=== PATIENT | male | born 2000 | race Caucasian/White ===

== ENCOUNTER 2024-06-14 09:52 | Inpatient (IN) | payer OTHER, SELFPAY ==
[2024-06-14] VITALS (8 sets, daily range): BP systolic 96–112; BP diastolic 48–72; PULSE 54–77; RESP 12–20; TEMP 35.9–37.1; O2SAT 98–100; BMI 23.8
--- NOTE | ~2024-06-14 | CT_ITS ---
CLINICAL HISTORY: RLQ pain, eval for acute appy CT abdomen and pelvis with contrast Comparison: None Findings: The lung bases are clear. Unremarkable gallbladder and solid organs. No urolithiasis. No bowel obstruction, pneumoperitoneum, or pneumatosis. The appendix is inflamed demonstrates enhancement and is dilated measuring up to 1 cm in diameter. There is a significant amount of periappendiceal inflammation and fluid. There are no definitive signs of perforation or abscess. A small amount of free fluid is present in the pelvis. The bones are intact. The rest of the GI tract is unremarkable. IMPRESSION: Acute appendicitis without evidence of perforation. This document has been electronically signed by: Baltazar Bunn MD on 06/14/2024 16:39:34
[2024-06-14 11:21] LABS: Basophils Percent Auto 0.2 % (0-2); Hematocrit 42.7 % (42.0-52.0); Hemoglobin 13.6 g/dl (14.0-18.0); Imm Gran Abs Auto 0.09 X10*3/uL (0.00-0.03); Imm Gran Pct Auto 0.5 % (0.0-0.4); Lymphocytes Absolute Auto 0.5 X10*3/uL (1.2-4.9); Lymphocytes Percent Auto 2.8 % (20-40); MANUAL DIFF FLAG SCAN; Mean Corpuscular HGB Conc 31.9 g/dl (31.0-36.0); Mean Corpuscular Hemoglobin 21.5 pg (27.0-33.0); Mean Corpuscular Volume 67.6 fL (80.0-98.0); Mean Platelet Volume 9.9 fL (9.4-12.4); Monocytes Absolute Auto 1.1 X10*3/uL (0.1-1.2); Monocytes Percent Auto 5.6 % (2-11); Neutrophils Absolute Auto 17.2 x10*3/uL (2.0-8.3); Neutrophils Percent Auto 90.9 % (45-73); Platelet Count 209 X10*3/uL (160-400); Red Blood Count 6.32 X10*6/uL (4.60-5.80); Red Cell Distribution Width 15.5 % (11.0-16.0); SCAN SMEAR FLAG 1; White Blood Count 18.9 X10*3/uL (4.8-10.8)
[2024-06-14 11:22] LABS: Appearance Urine Clear; Color Urine Yellow; Glucose Urine UA Negative (Negative); Leukocyte Esterase Urine Trace (Negative); Nitrite Urine Negative (Negative); PH 8.5 (5.0-9.0); Specific Gravity - Urine >= 1.030 (1.005-1.025); UMIC TRIGGER UACC YES; Urine Blood Negative (Negative); Urine Ketones 15 mg/dL (Negative); Urine Protein 30 (1+) mg/dL (Neg-Trace)
[2024-06-14 11:26] LABS: Bacteria Urine Trace (None Seen); Hyaline Casts Urine 0-2 /LPF (0-2); RBC Urine 0-2 /HPF (0-2); WBC Urine 0-5 /HPF (0-5)
[2024-06-14 11:35] LABS: Alanine Aminotransferase 15 U/L (0-40); Albumin Level 4.6 g/dL (3.5-5.0); Alkaline Phosphatase 69 U/L (39-117); Anion Gap 13 (12-20); Aspartate Amino Transferase 30 U/L (5-37); Bilirubin Direct 0.2 mg/dL (0.0-0.5); Bilirubin Total 0.6 mg/dL (0.0-1.0); Blood Urea Nitrogen 11 mg/dL (9-16); Calcium 9.4 mg/dL (8.4-10.2); Carbon Dioxide 25 mmol/L (22-29); Chloride 108 mmol/L (96-108); Estimated Glomerular Filt Rate > 60; Glucose Random 101 mg/dL (60-115); Lipase 14 U/L (8-78); Magnesium 1.8 mg/dL (1.6-2.6); Potassium 4.7 mmol/L (3.3-5.1); Sodium 141 mmol/L (135-145); Total Protein 7.3 g/dL (6.5-8.0)
[2024-06-14 11:40] LABS: SLIDE REVIEW VERIFIED
--- NOTE | 2024-06-14 11:47 | ED.ABDPAIN ---
HPI - Abdominal Pain General Chief Complaint: Abdominal Pain Stated Complaint: abd pain Time Seen by Provider: 06/14/24 11:39 Source: patient and family Mode of arrival: ambulatory Limitations: no limitations History of Present Illness ED Provider: Ekta Patel APRN HPI narrative: This is a 23-year-old transgender female who has had tops surgery only who presents with complaints of right lower quadrant abdominal pain since 03:00 with vomiting. Patient denies associated diarrhea, urinary symptoms, fevers, vaginal discharge, rashes or lesions. Patient is sexually active with 1 female partner. Does not have any concern for STI. Currently on testosterone, does get intermittent menstrual cycle. Denies any abdominal surgical history Related Data Allergies Allergy/AdvReac Type Severity Reaction Status Date / Time lactase [From Dairy Aid] Allergy Gastrointestinal Verified 06/14/24 10:32 Upset Penicillins [PCN] Allergy Rash Verified 06/14/24 10:32 Review of Systems Review of Systems Yes all other systems are reviewed and are negative Constitutional: Reports no additional constitutional complaints, Denies body ache(s), Denies chills, Denies fever(s), Denies headache(s) and Denies weakness Eyes: Reports no additional eye complaints and Denies change in vision Reports system reviewed and no additional complaints, except as documented, Denies dizziness, Denies headache(s), Denies nasal congestion, Denies nasal discharge and Denies neck pain Cardiovascular: Reports no additional cardiovascular complaints, Denies chest pain, Denies leg edema and Denies dyspnea Respiratory: Reports no additional respiratory complaints, Denies cough and Denies dyspnea Gastrointestinal: Reports no additional gastrointestinal complaints, Reports abdominal pain, Denies diarrhea, Reports nausea and Reports vomiting Genitourinary: Denies dysuria, Denies flank pain, Denies urinary frequency, Denies urinary hesitancy, Denies urinary incontinence and Denies urinary urgency Comments: Denies vaginal discharge Musculoskeletal: Reports no additional musculoskeletal complaints, Denies back pain, Denies arthralgias, Denies joint swelling, Denies neck pain, Denies numbness and Denies tingling Skin/Breast: Reports system reviewed and no additional complaints, except as docu and Denies rash Reports system reviewed and no additional complaints, except as documented, Denies Abnormal speech present, Denies dizziness, Denies headache(s), Denies numbness, Denies tingling and Denies weakness PMFSH Past Medical History Attestation statement: The following information was validated with the patient. Source: old records reviewed and nursing notes reviewed Social History Social History Smoked in Last 30 Days: No Use of substances other than those prescribed or required for medical reasons: Yes Substance Use Type: Marijuana Advance Directives: No Advance Directives Information Provided: Yes Physical Exam ED Vital Signs: Vital Signs - 24 hr 06/14/24 10:31 06/14/24 11:39 06/14/24 12:40 Temperature 98.7 F Pulse Rate 72 58 77 Respiratory Rate 18 18 18 Blood Pressure 112/72 105/58 L 96/52 L Pulse Oximetry 98 100 99 Oxygen Delivery Method Room Air Room Air Room Air 06/14/24 13:24 06/14/24 15:22 06/14/24 17:09 Temperature 96.6 F L Pulse Rate 70 60 61 Respiratory Rate 18 14 12 Blood Pressure 104/57 L 98/48 L 105/52 L Pulse Oximetry 99 99 99 Oxygen Delivery Method Room Air Room Air Room Air BMI result Body Mass Index 23.8 Const General: cooperative, healthy appearing, comfortable and no acute distress Orientation/consciousness: patient oriented x3 Limitations: no limitations HENMT Head: Yes normal to inspection Ears: hearing grossly normal bilaterally General nose exam: Normal external nose present Face and sinus: Yes normal facial exam Mouth: Normal oral and palatal mucosa present Throat: Yes posterior oropharynx normal Eyes General: appearance normal, both eyes and all related structures Pupils: Equal, round and reactive pupils present Neck Neck: Yes normal visual inspection Chest Chest palpation & inspection: normal inspection of the chest Resp Effort & Inspection: normal respiratory effort Auscultation: clear to auscultation bilaterally Cardio Rate: regular rate Rhythm: regular rhythm Peripheral pulses: Peripheral pulses 2+ throughout GI Inspection: Yes normal to inspection Palpation (GI): Soft to palpation, Tenderness to palpation present (GI) in the RLQ; with no rebound tenderness and Guarding due to palpation present (GI) Auscultation: normal bowel sounds Back/Spine/Pelvis Thoracic/Lumbar Spine: thoracic and lumbar spine normal to inspection Skin General skin exam: no rashes or lesions noted Neuro General: patient oriented x3, no focal motor deficits and normal sensation to monofilament Cranial nerves: Yes Equal, round and reactive pupils present Cognition (Neuro): normal cognition Speech: No Abnormal speech present Gait exam (Neuro): Normal gait present Motor exam (neuro): 5/5 motor strength present throughout Extrem General: Yes normal to inspection Course Course Course Narrative: 1656-CT shows acute appendicitis. At this time infection is suspected. Antibiotics ordered. Call out to surgery Medical Decision Making Medical Decision Making [facility] Narrative: This is a 23-year-old transgender female who has had tops surgery only who presents with complaints of right lower quadrant abdominal pain since 03:00 with vomiting. Patient denies associated diarrhea, urinary symptoms, fevers, vaginal discharge, rashes or lesions. Patient is sexually active with 1 female partner. Does not have any concern for STI. Currently on testosterone, does get intermittent menstrual cycle. Denies any abdominal surgical history On exam patient has tenderness the right lower quadrant with guarding with no rebound. Will obtain labs, UA, CT abdomen and pelvis Will give IV fluids, anti emetic and analgesia Differential Diagnosis Differential Diagnoses: The differential diagnosis associated with the presentation includes 1656- acute appendicitis, ovarian torsion, PID, renal colic, pyelonephritis Admission/Observation Consideration of admission/observation: Escalation of care including admission/observation considered 1704-Ct shows acute appendicitis. WIll need surgical consultation and admission Consult Healthcare Provider Management of the patient was discussed with: Automobile Relocation Engineer Kurt ([id number]) Admission ordereds placed 1738 Lab Data [facility] Lab Attestation statement: I reviewed the patient's lab results. 06/14/24 11:14 06/14/24 11:14 Labs: Lab Results 06/14/24 06/14/24 Range/Units 11:14 12:17 WBC 18.9 H (4.8-10.8) X10*3/uL RBC 6.32 H (4.60-5.80) X10*6/uL Hgb 13.6 L (14.0-18.0) g/dl Hct 42.7 (42.0-52.0) % MCV 67.6 L (80.0-98.0) fL MCH 21.5 L (27.0-33.0) pg MCHC 31.9 (31.0-36.0) g/dl RDW 15.5 (11.0-16.0) % Plt Count 209 (160-400) X10*3/uL MPV 9.9 (9.4-12.4) fL Immature Gran % (Auto) 0.5 H (0.0-0.4) % Neut % (Auto) 90.9 H (45-73) % Lymph % (Auto) 2.8 L (20-40) % [place] % (Auto) 5.6 (2-11) % Eos % (Auto) 0.0 (0-4) % Baso % (Auto) 0.2 (0-2) % Lymph # (Auto) 0.5 L (1.2-4.9) X10*3/uL [place] # (Auto) 1.1 (0.1-1.2) X10*3/uL Eos # (Auto) 0.0 (0.0-0.4) X10*3/uL Baso # (Auto) 0.0 (0.0-0.2) X10*3/uL Abs Immat Gran (auto) 0.09 H (0.00-0.03) X10*3/uL Absolute Neuts (auto) 17.2 H (2.0-8.3) x10*3/uL Absolute Nucleated RBC 0.000 (0.0-0.012) X10*3/uL Nucleated RBC % (auto) 0.0 (0.0-0.2) /100WBC Smear Tech's Comments VERIFIED Sodium 141 (135-145) mmol/L Potassium 4.7 (3.3-5.1) mmol/L Chloride 108 (96-108) mmol/L Carbon Dioxide 25 (22-29) mmol/L Anion Gap 13 (12-20) BUN 11 (9-16) mg/dL Creatinine 0.66 (0.5-1.4) mg/dL Estim Creat Clear Calc 154.0 Estimated GFR > 60 Random Glucose 101 (60-115) mg/dL Lactic Acid 1.4 (0.5-2.0) mmol/L Calcium 9.4 (8.4-10.2) mg/dL Magnesium 1.8 (1.6-2.6) mg/dL Total Bilirubin 0.6 (0.0-1.0) mg/dL Direct Bilirubin 0.2 (0.0-0.5) mg/dL AST 30 (5-37) U/L ALT 15 (0-40) U/L Alkaline Phosphatase 69 (39-117) U/L Total Protein 7.3 (6.5-8.0) g/dL Albumin 4.6 (3.5-5.0) g/dL Lipase 14 (8-78) U/L Beta HCG, Quant < 2 mIU/mL Urine Color Yellow Urine Appearance Clear Urine pH 8.5 (5.0-9.0) Ur Specific [place] >= 1.030 H (1.005-1.025) Urine Protein 30 (1+) H (Neg-Trace) mg/dL Urine Glucose (UA) Negative (Negative) mg/dL Urine Ketones 15 (Negative) mg/dL Urine Blood Negative (Negative) Urine Nitrite Negative (Negative) Ur Leukocyte Esterase Trace H (Negative) Urine RBC 0-2 (0-2) /HPF Urine WBC 0-5 (0-5) /HPF Ur Squamous Epith Cells 3-5 (0-2) /HPF Urine Bacteria Trace (None Seen) Hyaline Casts 0-2 (0-2) /LPF Independent Interpretation I performed an independent interpretation of an: CT Scan Interpretation: I independently reviewed the CT scan and agree with the [facility] Radiology Impression Discussion of test interpretation with radiology: I have reviewed the radiologist's reading. Radiologist Impression: [place] [id number] CT Scan Report Signed with Addenda Patient: Reno Bai MR#: [id number] : 2000 Acct:[id number] Age/Sex: 23 / M ADM Date: 06/14/24 Loc: .ED Attending Dr: Ordering Physician: Ekta Patel NP Date of Service: 06/14/24 Procedure(s): CT abdomen pelvis w IV con Accession Number(s): [id number] cc: Ekta Patel NP; Avel Sandoval MD~ Report Number: [id number]: Total DLP = 432.00 mGy-cm ADDENDUMThis document has been electronically signed by: Baltazar Bunn MD on 06/14/2024 16:39:34 ADDENDUM: This report was discussed with Dr. Herrera on June 14, 2024 16:42:00 EDT. This document has been electronically signed by: Isatu White on 06/14/2024 16:43:02 Addendum Dictated By: Baltazar Bunn MD Addendum Signed By: <Electronically signed by Baltazar Bunn MD in OV> 06/14/241642 Addendum Cosigned By: DD/ /05/1638 TD/TT: 06/14/2406/05/1642 CLINICAL HISTORY: RLQ pain, eval for acute appy CT abdomen and pelvis with contrast Comparison: None Findings: The lung bases are clear. Unremarkable gallbladder and solid organs. No urolithiasis. No bowel obstruction, pneumoperitoneum, or pneumatosis. The appendix is inflamed demonstrates enhancement and is dilated measuring up to 1 cm in diameter. There is a significant amount of periappendiceal inflammation and fluid. There are no definitive signs of perforation or abscess. A small amount of free fluid is present in the pelvis. The bones are intact. The rest of the GI tract is unremarkable. IMPRESSION: Acute appendicitis without evidence of perforation. This document has been electronically signed by: Baltazar Bunn MD on 06/14/2024 16:39:34 Independent Historian Clinical information obtained from an independent historian. History obtained from or confirmed by: Friend Medications Administered Generic Name Dose Route Start Last Admin Trade Name Freq PRN Reason Stop Dose Admin Metronidazole 500 mg in 100 mls @ 100 mls/hr 06/14/24 16:57 06/14/24 17:12 Flagyl IV 06/14/24 17:56 100 mls/hr ONCE ONE Administration Discontinued Medications Generic Name Dose Route Start Last Admin Trade Name Freq PRN Reason Stop Dose Admin Ceftriaxone Sodium 2 gm 06/14/24 16:57 06/14/24 17:07 Ceftriaxone Sodium 2 Gm Vial IVPUSH 06/14/24 16:58 2 gm ONCE ONE Administration Sodium Chloride 1,000 mls @ 999 mls/hr 06/14/24 11:56 06/14/24 13:35 Ns IV 06/14/24 12:56 Infused .Q1H1M STA Infusion Iohexol 85 ml 06/14/24 12:29 06/14/24 12:29 Iohexol 350 Mg/Ml 100 Ml Infus..Btl IV 06/14/24 12:30 85 ml ONCE ONE Administration Morphine Sulfate 4 mg 06/14/24 11:56 06/14/24 12:36 Morphine Sulfate 4 Mg/Ml Cartridge IVPUSH 06/14/24 11:57 4 mg ONCE ONE Administration Protocol Morphine Sulfate 4 mg 06/14/24 16:56 06/14/24 17:03 Morphine Sulfate 4 Mg/Ml Cartridge IVPUSH 06/14/24 16:57 4 mg ONCE ONE Administration Protocol Ondansetron HCl 4 mg 06/14/24 11:56 06/14/24 12:35 Ondansetron Hcl 4 Mg/2 Ml Vial IVPUSH 06/14/24 11:57 4 mg ONCE ONE Administration Critical Care Time Critical Care Time Critical Care Time: Yes Total Critical Care Time: 60 Attestation: direct patient care, patient reassessment, coordination of patient care, interpretation of data, review of patient's medical records, medical consultation and documentation of patient care. Discharge Plan Discharge Clinical Impression: Acute appendicitis Patient Disposition: Admitted As Inpatient Print Language: Slovenian
[2024-06-14] MEDS: iohexoL 350 MG/ML 100 ML INFUS..BTL 85 ML IV (12:29)
[2024-06-14] MEDS: 0.9 % Sodium Chloride 1,000 ML 999 ML IV (12:35)
[2024-06-14] MEDS: ondansetron HCL 4 MG/2 ML VIAL IVPUSH (12:35)
[2024-06-14] MEDS: Morphine Sulfate 4 MG/ML CARTRIDGE IVPUSH ×2 (12:36→17:03)
[2024-06-14 12:40] LABS: HCG Quantitative < 2 mIU/mL
[2024-06-14 12:50] LABS: Lactic Acid 1.4 mmol/L (0.5-2.0)
[2024-06-14] MEDS: cefTRIAXone sodium 2 GM VIAL IVPUSH (17:07)
[2024-06-14] MEDS: metroNIDAZOLE/NS 500 MG/100 ML PIGGYBACK 100 MG IV (17:12)
--- NOTE | 2024-06-14 17:59 | PM.HPGS ---
History of Present Illness History of Present Illness Date of Service: 06/14/24 Chief complaint: abd pain Narrative: Reno Bai is a 23 year old transgender female to male who comes into the emergency room with a about an 18 hour history of generalized abdominal pain starting in the epigastric area and working more towards the umbilicus right lower quadrant area. Little nausea low-grade temperature. Never had anything like this before. Here in the emergency room his white count is a little elevated and CT scan of the abdomen and pelvis show inflamed thickened appendix with periappendiceal stranding. He has had bilateral mastectomies before and takes testosterone weekly. Review of Systems Review of Systems: Yes all other systems are reviewed and are negative PMFSH Social History Social History Smoked in Last 30 Days: No Use of substances other than those prescribed or required for medical reasons: Yes Substance Use Type: Marijuana Advance Directives: No Advance Directives Information Provided: Yes Meds Allergies Allergy/AdvReac Type Severity Reaction Status Date / Time lactase [From Dairy Aid] Allergy Gastrointestinal Verified 06/14/24 10:32 Upset Penicillins [PCN] Allergy Rash Verified 06/14/24 10:32 Active Medications: Current Medications Acetaminophen (Acetaminophen 325 Mg Tablet) 650 mg PO Q6H PRN PRN Reason: Pain, Mild 1-3,fever,headache Sodium Chloride (Sodium Chloride 0.45 %) 1,000 mls @ 100 mls/hr IVCONT .Q10H ARIEL Melatonin (Melatonin 3 Mg Tablet) 6 mg PO BEDTIME PRN PRN Reason: Insomnia Morphine Sulfate (Morphine Sulfate 4 Mg/Ml Cartridge) 3 mg IVPUSH ONCE PRN; Protocol PRN Reason: Pain, Severe (Pain Scale 7-10) Ondansetron HCl (Ondansetron Hcl 4 Mg/2 Ml Vial) 4 mg IVPUSH Q8H PRN PRN Reason: Nausea and Vomiting Sodium Chloride (0.9 % Sodium Chloride Flush 3 Ml Syringe) 3 ml IVFLUSH QSHIFT ARIEL Sodium Chloride (0.9 % Sodium Chloride Flush 3 Ml Syringe) 3 ml IVFLUSH QSHIFT ARIEL Home Medications ?Medication ?Instructions ?Recorded ?Confirmed ?Last Taken ?Type testosterone cypionate 200 mg/mL 200 mg IM QWEEK 06/14/24 Unknown History intramuscular oil trazodone 50 mg tablet 50 mg PO DAILY 06/14/24 Unknown History Physical Exam Vital Signs: Vital Signs: Last Vital Signs Temp 96.6 F L 06/14/24 13:24 Pulse 61 06/14/24 17:09 Resp 12 06/14/24 17:09 BP 105/52 L 06/14/24 17:09 Pulse Ox 99 06/14/24 17:09 O2 Del Method Room Air 06/14/24 17:09 BMI result Body Mass Index 23.8 Const: General: cooperative, healthy appearing, comfortable and no acute distress Orientation/consciousness: patient oriented x3 Resp: Effort & Inspection: normal respiratory effort Auscultation: clear to auscultation bilaterally Cardio: Rate: regular rate Rhythm: regular rhythm GI: Other: Abdomen is soft nondistended tender in the right lower quadrant with some mild guarding no rebound no peritoneal signs active bowel sounds no hernias Neuro: General: patient oriented x3 Extrem: General: Yes normal to inspection Results Results Labs: Short CBC 06/14/24 Range/Units 11:14 WBC 18.9 H (4.8-10.8) X10*3/uL Hgb 13.6 L (14.0-18.0) g/dl Hct 42.7 (42.0-52.0) % Plt Count 209 (160-400) X10*3/uL BMP 06/14/24 11:14 Sodium 141 Potassium 4.7 Chloride 108 Carbon Dioxide 25 BUN 11 Creatinine 0.66 Calcium 9.4 Liver Function 06/14/24 Range/Units 11:14 Total Bilirubin 0.6 (0.0-1.0) mg/dL Direct Bilirubin 0.2 (0.0-0.5) mg/dL AST 30 (5-37) U/L ALT 15 (0-40) U/L Alkaline Phosphatase 69 (39-117) U/L Albumin 4.6 (3.5-5.0) g/dL Urine 06/14/24 Range/Units 11:14 Urine Color Yellow Urine Appearance Clear Urine pH 8.5 (5.0-9.0) Ur Specific [place] >= 1.030 H (1.005-1.025) Urine Protein 30 (1+) H (Neg-Trace) mg/dL Urine Glucose (UA) Negative (Negative) mg/dL Abdomen CT scan report/results: report reviewed and image reviewed CT scan - pelvis: report reviewed and image reviewed Additional studies: Patient: Reno Bai MR#: [id number] : 2000 Acct:[id number] Age/Sex: 23 / M ADM Date: 06/14/24 Loc: HO.ED Attending Dr: Ordering Physician: Ekta Patel NP Date of Service: 06/14/24 Procedure(s): CT abdomen pelvis w IV con Accession Number(s): [id number] cc: Ekta Patel NP; Avel Sandoval MD~ Report Number: [id number]: Total DLP = 432.00 mGy-cm ADDENDUMThis document has been electronically signed by: Baltazar Bunn MD on 06/14/2024 16:39:34 ADDENDUM: This report was discussed with Dr. Herrera on June 14, 2024 16:42:00 EDT. This document has been electronically signed by: Isatu White on 06/14/2024 16:43:02 Addendum Dictated By: Baltazar Bunn MD Addendum Signed By: <Electronically signed by Baltazar Bunn MD in OV> 06/14/24 1643 Addendum Cosigned By: DD/ /05/1638 TD/TT: 06/14/2406/05/1642 CLINICAL HISTORY: RLQ pain, eval for acute appy CT abdomen and pelvis with contrast Comparison: None Findings: The lung bases are clear. Unremarkable gallbladder and solid organs. No urolithiasis. No bowel obstruction, pneumoperitoneum, or pneumatosis. The appendix is inflamed demonstrates enhancement and is dilated measuring up to 1 cm in diameter. There is a significant amount of periappendiceal inflammation and fluid. There are no definitive signs of perforation or abscess. A small amount of free fluid is present in the pelvis. The bones are intact. The rest of the GI tract is unremarkable. IMPRESSION: Acute appendicitis without evidence of perforation. This document has been electronically signed by: Baltazar Bunn MD on 06/14/2024 16:39:34 Dictated By: Baltazar Bunn MD Signed By: <Electronically signed by Baltazar Bunn MD in OV> 06/14/24 1640 DD/ 1639 TD/TT: 06/14/24 1639 Customer Support Associate: Assessment and Plan (1) Acute appendicitis: Status: Acute Plan 23-year-old male transgender with 18 hour history of abdominal pain right lower quadrant tenderness slightly elevated white count and CT scan showing findings consistent with a appendicitis. Plan to admit NPO IV fluids IV antibiotics and OR for laparoscopic appendectomy. Risks and benefits were discussed with the patient including but not limited to bleeding infection abscess possible bowel injury possible other organ injury and despite this he wishes to proceed. Quality Stroke Does the patient have a stroke diagnosis?: No VTE Prior VTE?: No VTE Risk Level:: Surgical - low VTE Device Contraindication: N/A - Device Ordered VTE Drug Contraindication: Treatment Not Indicated Procedures Date of Service Date of Service: 06/14/24
[2024-06-14] MEDS: Sodium Chloride 0.45 % 1,000 ML 100 ML IVCONT (18:21)
--- NOTE | 2024-06-14 18:22 | PHA.MEDREC ---
Pharmacy Consult ? Medication Reconciliation Pharmacy has completed the medication reconciliation. Spoke to pt to confirm meds.
--- NOTE | 2024-06-14 23:03 | P.CONAN_ITS ---
[facility] Active Problems Active Problems: All Active Problems Acute appendicitis (Acute) Past Medical History Functional capacity: independent ambulation Family History Family history of problems with anesthesia: No Surgical History History of Problems with Anesthesia: No Social History Social History Household Members: Family Housing: Apartment Do you presently have visiting nurse or other home services: No Patient Tobacco Use Status: Never used Tobacco Substance Use Type: Marijuana Meds Allergies Allergy/AdvReac Type Severity Reaction Status Date / Time lactase [From Dairy Aid] Allergy Gastrointestinal Verified 06/14/24 10:32 Upset Penicillins [PCN] Allergy Rash Verified 06/14/24 10:32 Active Medications: Current Medications Acetaminophen (Acetaminophen 325 Mg Tablet) 650 mg PO Q6H PRN PRN Reason: Pain, Mild 1-3,fever,headache Sodium Chloride (Sodium Chloride 0.45 %) 1,000 mls @ 100 mls/hr IVCONT .Q10H [facility] Last Admin: 06/14/24 18:21 Dose: 100 mls/hr Melatonin (Melatonin 3 Mg Tablet) 6 mg PO BEDTIME PRN PRN Reason: Insomnia Morphine Sulfate (Morphine Sulfate 4 Mg/Ml Cartridge) 3 mg IVPUSH ONCE PRN; Protocol PRN Reason: Pain, Severe (Pain Scale 7-10) Ondansetron HCl (Ondansetron Hcl 4 Mg/2 Ml Vial) 4 mg IVPUSH Q8H PRN PRN Reason: Nausea and Vomiting Sodium Chloride (0.9 % Sodium Chloride Flush 3 Ml Syringe) 3 ml IVFLUSH [facility] Sodium Chloride (0.9 % Sodium Chloride Flush 3 Ml Syringe) 3 ml IVFLUSH QSHIFT [facility] Home Medications ?Medication ?Instructions ?Recorded ?Confirmed ?Last Taken ?Type testosterone cypionate 200 mg/mL 200 mg IM TU@0900 06/14/24 06/14/24 06/09/24 History intramuscular oil trazodone 50 mg tablet 50 mg PO BEDTIME 06/14/24 06/14/24 06/12/24 History Exam Height,Weight and Vital Signs: Height 5 ft 5 in Weight 65 kg Last Vital Signs Temp 97.7 F 06/14/24 20:42 Pulse 56 06/14/24 20:42 Resp 20 06/14/24 20:42 BP 109/59 L 06/14/24 20:42 Pulse Ox 99 06/14/24 20:42 O2 Del Method Room Air 06/14/24 20:42 Pertinent Lab Results Pertinent Lab Results: Laboratory Tests 06/14/24 06/14/24 11:14 12:17 WBC 18.9 H RBC 6.32 H Hgb 13.6 L Hct 42.7 MCV 67.6 L MCH 21.5 L MCHC 31.9 RDW 15.5 Plt Count 209 MPV 9.9 Immature Gran % (Auto) 0.5 H Neut % (Auto) 90.9 H Lymph % (Auto) 2.8 L [place] % (Auto) 5.6 Eos % (Auto) 0.0 Baso % (Auto) 0.2 Lymph # (Auto) 0.5 L [place] # (Auto) 1.1 Eos # (Auto) 0.0 Baso # (Auto) 0.0 Abs Immat Gran (auto) 0.09 H Absolute Neuts (auto) 17.2 H Absolute Nucleated RBC 0.000 Nucleated RBC % (auto) 0.0 Smear Tech's Comments VERIFIED Sodium 141 Potassium 4.7 Chloride 108 Carbon Dioxide 25 Anion Gap 13 BUN 11 Creatinine 0.66 Estim Creat Clear Calc 154.0 Estimated GFR > 60 Random Glucose 101 Lactic Acid 1.4 Calcium 9.4 Magnesium 1.8 Total Bilirubin 0.6 Direct Bilirubin 0.2 AST 30 ALT 15 Alkaline Phosphatase 69 Total Protein 7.3 Albumin 4.6 Lipase 14 Beta HCG, Quant < 2 Urine Color Yellow Urine Appearance Clear Urine pH 8.5 Ur Specific [place] >= 1.030 H Urine Protein 30 (1+) H Urine Glucose (UA) Negative Urine Ketones 15 Urine Blood Negative Urine Nitrite Negative Ur Leukocyte Esterase Trace H Urine RBC 0-2 Urine WBC 0-5 Ur Squamous Epith Cells 3-5 Urine Bacteria Trace Hyaline Casts 0-2 Airway Mallampati Class: II TM Dist: >3cm Neck ROM: Full Heart: RRR Lungs: CTA Assessment and Plan Final Anesthetic Review Family History of Problems with Anesthesia: No History of Problems with Anesthesia: No NPO: Yes ASA Class: II and Emergency Final Preanesthetic Review: Meds/Allgs Chart Reviewed, Consent Obtained/Reviewed and Anes Risks/Benef Reviewed Patient Risk: Intermediate Procedure Risk: Intermediate Anesthetic Plan Anesthetic Plan: GA
[2024-06-15] VITALS (8 sets, daily range): BP systolic 109–127; BP diastolic 54–70; PULSE 55–100; RESP 14–18; TEMP 36.2–36.9; O2SAT 98–99
[2024-06-15] MEDS: Ketorolac Tromethamine 15 MG/ML VIAL IVPUSH (02:00)
[2024-06-15] MEDS: Sodium Chloride 0.45 % 1,000 ML 100 ML IVCONT (02:03)
[2024-06-15] MEDS: oxyCODONE HCl Immed Release 5 MG TABLET 10 MG PO (07:29)
[2024-06-15] MEDS: cefTRIAXone sodium 1 GM VIAL IVPUSH (07:30)
[2024-06-15 07:38] LABS: Basophils Percent Auto 0.2 % (0-2); Hematocrit 39.9 % (42.0-52.0); Hemoglobin 12.5 g/dl (14.0-18.0); Imm Gran Abs Auto 0.03 X10*3/uL (0.00-0.03); Imm Gran Pct Auto 0.3 % (0.0-0.4); Lymphocytes Absolute Auto 0.5 X10*3/uL (1.2-4.9); Lymphocytes Percent Auto 4.4 % (20-40); MANUAL DIFF FLAG SCAN; Mean Corpuscular HGB Conc 31.3 g/dl (31.0-36.0); Mean Corpuscular Hemoglobin 21.5 pg (27.0-33.0); Mean Corpuscular Volume 68.7 fL (80.0-98.0); Mean Platelet Volume 10.5 fL (9.4-12.4); Monocytes Absolute Auto 0.3 X10*3/uL (0.1-1.2); Monocytes Percent Auto 2.6 % (2-11); Neutrophils Absolute Auto 9.8 x10*3/uL (2.0-8.3); Neutrophils Percent Auto 92.5 % (45-73); Platelet Count 187 X10*3/uL (160-400); Red Blood Count 5.81 X10*6/uL (4.60-5.80); Red Cell Distribution Width 15.2 % (11.0-16.0); SCAN SMEAR FLAG 1; White Blood Count 10.6 X10*3/uL (4.8-10.8)
--- NOTE | 2024-06-15 07:50 | P.PNGS_ITS ---
Subjective Subjective Date of Service: 06/15/24 <Renu Maldonado PA-C - Last Filed: 06/15/24 07:54> 06/15/24 <Philip Mathias MD - Last Filed: 06/15/24 10:48> Interval history: He feels well this morning. Mild incisional pain and RLQ pain but improved. OOB and voiding without difficulty. Has not eaten anything. <Renu Maldonado PA-C - Last Filed: 06/15/24 07:54> Physical Exam 2 Vital Signs: Vital Signs: Last Vital Signs Temp 97.1 F 06/15/24 07:13 Pulse 58 06/15/24 07:13 Resp 17 06/15/24 07:13 BP 116/57 L 06/15/24 07:13 Pulse Ox 98 06/15/24 07:13 O2 Del Method Room Air 06/15/24 07:13 BMI result Body Mass Index 23.8 <AVRIL Wise Last Filed: 06/15/24 07:54> Const: General: comfortable, no acute distress and alert <Renu Maldonado PA-C - Last Filed: 06/15/24 07:54> Orientation/consciousness: patient oriented x3 <AVRIL Wise Last Filed: 06/15/24 07:54> Resp: Effort & Inspection: normal respiratory effort <AVRIL Wise Last Filed: 06/15/24 07:54> GI: Other: dressings intact, mild staining on umbilicus dressings abd soft, mild incisional tenderness <Renu Maldonado PA-C - Last Filed: 06/15/24 07:54> Inspection: No distended <AVRIL Wise Last Filed: 06/15/24 07:54> Palpation (GI): no guarding <AVRIL Wise Last Filed: 06/15/24 07:54> Skin: General skin exam: no rashes or lesions noted <AVRIL Wise Last Filed: 06/15/24 07:54> Neuro: General: patient oriented x3 and moves all extremities <AVRIL Wies Last Filed: 06/15/24 07:54> Objective Data Active Medications Acetaminophen (Acetaminophen 325 Mg Tablet) 650 mg PO Q6H PRN PRN Reason: Pain, Mild 1-3,fever,headache Ceftriaxone Sodium (Ceftriaxone Sodium 1 Gm Vial) 1 gm IVPUSH Q24H [facility] Last Admin: 06/15/24 07:30 Dose: 1 gm Documented By: EMILY Sodium Chloride (Sodium Chloride 0.45 %) 1,000 mls @ 100 mls/hr IVCONT .Q10H [facility] Last Admin: 06/15/24 02:03 Dose: 100 mls/hr Documented By: REBECCA Sodium Chloride (Ns) 1,000 mls @ 100 mls/hr IVCONT .Q10H [facility] Last Admin: 06/15/24 02:09 Dose: Not Given Documented By: REBECCA Non-Admin Reason: held per surgeon Ketorolac Tromethamine (Ketorolac Tromethamine 15 Mg/Ml Vial) 15 mg IVPUSH Q6H PRN PRN Reason: Pain, Moderate(Pain Scale 4-6) Stop: 06/20/24 01:44 Last Admin: 06/15/24 02:00 Dose: 15 mg Documented By: REBECCA Melatonin (Melatonin 3 Mg Tablet) 6 mg PO BEDTIME PRN PRN Reason: Insomnia Morphine Sulfate (Morphine Sulfate 4 Mg/Ml Cartridge) 3 mg IVPUSH ONCE PRN; Protocol PRN Reason: Pain, Severe (Pain Scale 7-10) Naloxone HCl (Naloxone Hcl 0.4 Mg/Ml Vial) 0.04 mg IVPUSH Q5M PRN PRN Reason: Excessive sedation or RR < 8 Ondansetron HCl (Ondansetron Hcl 4 Mg/2 Ml Vial) 4 mg IVPUSH Q8H PRN PRN Reason: Nausea and Vomiting Oxycodone HCl (Oxycodone Hcl Immed Release 5 Mg Tablet) 10 mg PO Q4H PRN PRN Reason: Pain, Severe (Pain Scale 7-10) Last Admin: 06/15/24 07:29 Dose: 10 mg Documented By: EMILY <Renu Maldonado PA-C - Last Filed: 06/15/24 07:54> Labs CBC & Chem 7: 06/15/24 06:50 06/14/24 11:14 <Renu Maldonado PA-C - Last Filed: 06/15/24 07:54> Labs: Laboratory Results - last 24 hr 06/14/24 06/14/24 06/15/24 11:14 12:17 06:50 MCV 67.6 L 68.7 L MCH 21.5 L 21.5 L MCHC 31.9 31.3 RDW 15.5 15.2 Plt Count 209 187 MPV 9.9 10.5 Immature Gran % (Auto) 0.5 H Neut % (Auto) 90.9 H Lymph % (Auto) 2.8 L [place] % (Auto) 5.6 Eos % (Auto) 0.0 Baso % (Auto) 0.2 Lymph # (Auto) 0.5 L [place] # (Auto) 1.1 Eos # (Auto) 0.0 Baso # (Auto) 0.0 Abs Immat Gran (auto) 0.09 H Absolute Neuts (auto) 17.2 H Absolute Nucleated RBC 0.000 Nucleated RBC % (auto) 0.0 Smear Tech's Comments VERIFIED Anion Gap 13 Estim Creat Clear Calc 154.0 Estimated GFR > 60 Random Glucose 101 Lactic Acid 1.4 Calcium 9.4 Magnesium 1.8 Total Bilirubin 0.6 Direct Bilirubin 0.2 AST 30 ALT 15 Alkaline Phosphatase 69 Total Protein 7.3 Albumin 4.6 Lipase 14 Beta HCG, Quant < 2 Urine Color Yellow Urine Appearance Clear Urine pH 8.5 Ur Specific [place] >= 1.030 H Urine Protein 30 (1+) H Urine Glucose (UA) Negative Urine Ketones 15 Urine Blood Negative Urine Nitrite Negative Ur Leukocyte Esterase Trace H Urine RBC 0-2 Urine WBC 0-5 Ur Squamous Epith Cells 3-5 Urine Bacteria Trace Hyaline Casts 0-2 <Renu Maldonado PA-C - Last Filed: 06/15/24 07:54> Procedures Date of Service Date of Service: 06/15/24 <Renu Maldonado PA-C - Last Filed: 06/15/24 07:54> 06/15/24 <Philip Mathias MD - Last Filed: 06/15/24 10:48> Progress Note: A&P Assessment and plan (1) Acute appendicitis: Status: Acute <Renu Maldonado PA-C - Last Filed: 06/15/24 07:54> Assessment and Plan: Has incisional pain, appropriate to postop course Looks well Tolerating diet Abdomen is soft and benign Discharge instructions reviewed with the patient Okay to DC home Seen and examined independently <Philip Mathias MD - Last Filed: 06/15/24 10:48> (2) S/P laparoscopic appendectomy: Status: Acute <Renu Maldonado PA-C - Last Filed: 06/15/24 07:54> Assessment and Plan: S/p lap appy. Overall doing well post op, abd benign with dressings intact and appropriate post op tenderness. Will reassess later today, if tolerating solid diet and remains comfortable, stable for dc to home today. <Renu Maldonado PA-C - Last Filed: 06/15/24 07:54> Time Spent With Patient Time: Total time managing care of this patient today ____ minutes. <Renu Maldonado PA-C - Last Filed: 06/15/24 07:54> Quality Stroke Does the patient have a stroke diagnosis?: No <Renu Maldonado PA-C - Last Filed: 06/15/24 07:54> VTE Prior VTE?: No <Renu Maldonado PA-C - Last Filed: 06/15/24 07:54> VTE Risk Level:: Surgical - low <Renu Malodnado PA-C - Last Filed: 06/15/24 07:54> VTE Device Contraindication: N/A - Device Ordered <Renu Maldonado PA-C - Last Filed: 06/15/24 07:54> VTE Drug Contraindication: Treatment Not Indicated <Renu Maldonado PA-C - Last Filed: 06/15/24 07:54>
[2024-06-15 08:26] LABS: SLIDE REVIEW VERIFIED
--- NOTE | 2024-06-15 08:55 | P.OP_ITS ---
Operative Note Operative Note Date of Service: 06/15/24 Narrative: Preop diagnosis--acute appendicitis Postop diagnosis--acute appendicitis Procedure done--[facility]ar[facility]esthesia--general endotracheal tube anesthesia Patient is a 23-year-old transgender male who comes in complaining abdominal pain now isolated to the right lower quadrant elevated white count workup reveals acute appendicitis elevated white count. Plan is to undergo laparoscopic appendectomy Findings--retrocecal acute appendicitis Procedure-- Patient was brought to the operative room under Anesthesia guidance intubated he had compression stockings placed before induction received preoperative antibiotics. Abdomen was prepped and draped in standard surgical fashion. Infraumbilical incision was created after numbing up the area with a 0.25% Marcaine with epinephrine dissection was carried down to the anterior abdominal wall fascia which was grasped with Cheryl's and transected. This was opened up and the peritoneal cavity entered. 0 Vicryl pursestring suture was used and Arroyo trocar introduced and pneumoperitoneum established to 15 mmHg pressure. Two 5 mm ports were then placed under direct visualization using local when the suprapubic area 1 in the left lower quadrant area the cecum was mobilized and the appendix base was noted with the body in the tip going in a retrocecal fashion there were some adhesions noted to the lateral and posterior wall of the cecum and ascending colon. The lateral attachments along the abdominal wall were taken down with the LigaSure mobilizing the tip of the appendix well. Then from the tip going down to the base the appendix was slowly mobilized and careful dissection was taken more medially to separate the appendix from the cecal bowel base using little bit of dissection and then the LigaSure. Eventually we got to a point where the entire appendix mesentery was mobilized and the appendix was just attached to the cecum. Here Endo-RAYMUNDO 45 load was fired across the appendix base and the appendix placed in a Endo-Catch bag and removed from the peritoneal cavity. The area was then reexamined and the appendix stump looks fine the bowel looked fine and there was no bleeding from the area where the appendiceal artery had been leg assured. Ports were removed the infraumbilical pursestring suture was approximated and then 4-0 Monocryl in an interrupted subcuticular fashion was used to approximate the skin edges. At the end of the case all sponge instrument needle counts were correct estimated blood loss was 5 cc specimens sent was the appendix patient returned stable to recovery room
--- NOTE | 2024-06-15 09:04 | HO.POSTANES ---
Post Anesthesia Evaluation Post Anesthesia Evaluation Date of Service: 06/15/24 Vital Signs: Vital Signs Temp Pulse Resp BP Pulse Ox O2 Del Method 06/15/24 07:13 97.1 F 58 17 116/57 L 98 Room Air 06/15/24 04:00 97.8 F 55 14 109/59 L 98 Room Air 06/15/24 01:59 97.4 F 70 18 112/66 98 Room Air 06/15/24 01:31 60 15 109/56 L 98 Room Air 06/15/24 01:27 98.2 F 72 15 113/54 L 98 Room Air 06/15/24 01:16 68 15 110/64 98 Room Air 06/15/24 01:11 75 15 120/70 98 Room Air 06/15/24 01:06 98.4 F 100 16 127/69 99 Room Air Anesthesia: General Endotracheal-GETA Mental Status: Awake Pain Control: Satisfactory Nausea/Vomiting: None Hydration: Adequate Anesthesia-Related Issues: No Anes. Related Issues
--- NOTE | 2024-06-15 14:24 | PM.DS ---
DS: Providers Provider Date of Service: 06/15/24 Date of admission: 06/14/24 17:54 Date of discharge: 06/15/24 Primary care physician: Avel Sandoval MD Attending physician on admission: Hoda Jain Attending physician on discharge: Philip Mathias DS: Diagnosis Discharge Diagnosis (1) Acute appendicitis: Status: Acute (2) S/P laparoscopic appendectomy: Status: Acute DS: Summary Hospital Course Hospital Course: HPI AT ADMISSION: Reno Bai is a 23 year old transgender female to male who comes into the emergency room with a about an 18 hour history of generalized abdominal pain starting in the epigastric area and working more towards the umbilicus right lower quadrant area. Little nausea low-grade temperature. Never had anything like this before. Here in the emergency room his white count is a little elevated and CT scan of the abdomen and pelvis show inflamed thickened appendix with periappendiceal stranding. He has had bilateral mastectomies before and takes testosterone weekly. HOSPITAL COURSE: The patient was admitted to the surgical service for further treatment of the acute appendicitis. He elected to proceed with laparoscopic appendectomy. He was added onto the OR schedule for that day. On 06/14/24, a laparoscopic appendectomy was performed by Dr. Jain without complication. The patient tolerated the procedure well. He had an uncomplicated recovery course. On POD #1, he felt well and was tolerating a solid diet without nausea or vomiting, had good pain control and was ambulating without difficulty. He was hemodynamically stable. His abdomen was benign with appropriate post op tenderness and clean and intact dressings. His WBC normalized. He felt ready for discharge. He was discharged to home on 06/15/24 in stable condition. He is to follow up in the office in 1-2 weeks. Status at Discharge Functional status at discharge: independent ambulation Overall status at discharge: patient is progressing back to baseline Time Attestation Discharge Coordination Time (in mins): 25 Quality: Safe Use of Opioids Does Pt have an Active Cancer Diagnosis on the Problem List?: No Quality: Stroke Does the patient have a stroke diagnosis?: No Physical Exam Vital Signs: Vital Signs: Last Vital Signs Temp 97.1 F 06/15/24 07:13 Pulse 58 06/15/24 07:13 Resp 17 06/15/24 07:13 BP 116/57 L 06/15/24 07:13 Pulse Ox 98 06/15/24 07:13 O2 Del Method Room Air 06/15/24 07:13 BMI result Body Mass Index 23.8 Const: General: comfortable, no acute distress and alert Orientation/consciousness: patient oriented x3 Resp: Effort & Inspection: normal respiratory effort GI: Inspection: No distended and Yes incision (dressings intact ) Palpation (GI): Soft to palpation, Tenderness to palpation present (GI) (mild incisional) and no guarding Skin: General skin exam: no rashes or lesions noted Neuro: General: patient oriented x3 and moves all extremities DS: Data Data Completed and Pending Pending studies at discharge: Pending at discharge 06/15/24 00:46 Surgical [PTH] Routine Labs on day of discharge: Laboratory Results - last 24 hr 06/15/24 06:50 WBC 10.6 RBC 5.81 H Hgb 12.5 L Hct 39.9 L MCV 68.7 L MCH 21.5 L MCHC 31.3 RDW 15.2 Plt Count 187 MPV 10.5 Immature Gran % (Auto) 0.3 Neut % (Auto) 92.5 H Lymph % (Auto) 4.[address] [place] % (Auto) 2.6 Eos % (Auto) 0.0 Baso % (Auto) 0.2 Lymph # (Auto) 0.[address] [place] # (Auto) 0.3 Eos # (Auto) 0.0 Baso # (Auto) 0.0 Abs Immat Gran (auto) 0.03 Absolute Neuts (auto) 9.8 H Absolute Nucleated RBC 0.000 Nucleated RBC % (auto) 0.0 Smear Tech's Comments VERIFIED Preliminary micro results at discharge 06/14/24 12:17 Blood Culture - Preliminary Blood - Venous No growth after 24 hours. 06/14/24 12:17 Blood Culture - Preliminary Blood - Venous No growth after 24 hours. Discharge Plan Discharge Anticipated Discharge Date/Time: 06/15/24 05:45 Patient Disposition: Home, Self-Care Discharge Diagnosis: acute appendicitis Referrals: Philip Mathias MD [Physician] - 1 Week Avel Sandoval MD [Primary Care Provider] - 1 Week Discharge Medications: New docusate sodium [Colace] 100 mg capsule 100 mg PO BID Qty: 30 0RF oxycodone 5 mg tablet 5 mg PO Q4H PRN (Reason: pain (scale score 7-10)) Qty: 24 0RF Rx Instructions: Partial Fill upon patient request. Continued trazodone 50 mg tablet 50 mg PO BEDTIME testosterone cypionate 200 mg/mL oil 200 mg IM TU@0900 Discharge Orders: Discharge Order (Routine); Ordered 06/15/24 Ordered By: Renu Maldonado Diet: Advance to usual diet Activity on Discharge: No heavy lifting Stand Alone Forms: Patient Portal Discharge page, Work/School Release Print Language: Georgian Activity Restrictions/Additional Instructions: If the incision area is tender, you may apply an ice pack for short intervals (No more than 20 minutes on, followed by at least 20 minutes off). Do not apply heat. Do not use creams, lotions, or topical antibiotics. Ok to shower. Remove clear dressings 3 days following your procedure. You have steri strips (small white cloth strips) covering your incision- these will fall off ~1 week. No heavy lifting (>10lbs) or strenuous activity! Take Tylenol Extra-strength 1-2 tabs every 6 hours for the first day, then as needed. Oxycodone every 4-6 hours as needed for pain. Colace 100 mg twice a day as needed for constipation. Follow up in office with Dr. Mathias in 1 week. ([phone]) Call Your Doctor If: -Your temperature exceeds 101? F -You experience excessive pain or swelling -You have an unexpected reaction to medication -You have excessive bleeding -You experience continued vomiting/nausea -Your incision begins to separate -Your incision shows signs of infection such as increased redness, swelling, excessive pain, drainage (light blood or clear fluid is normal) or heat Care Plan Goals: Return to baseline health and resume normal activities following recovery period. Health Concerns: acute appendicitis Plan of Treatment: s/p laparoscopic appendectomy F/u in office in 1 week Assessment: Doing well post op. Discharge Date/Time: 06/15/24 10:55
== END 2024-06-15 10:55 | disposition home or self-care (01) | DRG 234 ==
LOC: HO.ED 17:07 → HO.EDOVER 17:58 → HO.IMC 20:29
PROVIDERS: Nurse Practitioner Family; Physician Assistant; Admitting Provider Surgery; Emergency Provider Emergency Medicine; PCP Internal Medicine; Visit Provider Surgery
PROC: 0DTJ4ZZ Resection of Appendix, Percutaneous Endoscopic Approach (ICD-10-PCS; CPT 44970; principal; 2024-06-14 21:00)
DX: K35.80 Unspecified acute appendicitis (principal); F64.0 Transsexualism; Z79.899 Other long term (current) drug therapy
CPT/HCPCS: 44970; 36415; 74177; 80048; 80076; 81001; 83605; 83690; 83735; 84702; 85025; 87040; 88304; 99285; J0696; J1100; J1836; J1885; J2003; J2250; J2270; J2371; J2405; J2704; J2795; J3010; Q9967

== ENCOUNTER → 2024-06-14 11:56 | Outpatient (BNV) | payer OTHER, SELFPAY | PROVIDERS: Emergency Provider Emergency Medicine; PCP Internal Medicine; Visit Provider Radiology Diagnostic Radiology | DX: K35.80 Unspecified acute appendicitis (principal) | CPT/HCPCS: 74177 ==

== ENCOUNTER → 2024-06-14 17:54 | Outpatient (BNV) | payer OTHER, SELFPAY | PROVIDERS: Admitting Provider Surgery; Emergency Provider Emergency Medicine; PCP Internal Medicine; Visit Provider Surgery | DX: K35.80 Unspecified acute appendicitis (principal); Z90.49 Acquired absence of other specified parts of digestive tract | CPT/HCPCS: 44970; 99024; 99222 ==

== ENCOUNTER 2024-06-24 09:17 | Outpatient (AMB) | payer OTHER, SELFPAY ==
--- NOTE | 2024-06-24 09:16 | MHC.OFFVIS ---
Vital Signs 06/24/24 09:24 Height 5 ft 5 in Weight 150 lb 5.684 oz BMI 25.0 BP 110/70 Blood Pressure Location Lt brachial Position Sitting Intake Visit Reasons: 1wk s/p laparoscopic appendectomy Intake Note: Patient is seen in office for post op assessment post laparoscopic appendectomy. Pt c/o:denies any concerns surgery:06/14/24 Social Services Technician Required: No Accompanied by: Self / Same As Patient Allergies lactase [From [employer]] Allergy (Verified 06/24/24 09:25) Gastrointestinal Upset Penicillins [PCN] Allergy (Verified 06/24/24 09:25) Rash HPI HPI 1wk s/p laparoscopic appendectomy: Details: Patient reports he is doing well postop. Reports some mild pain at the incision sites and some pain with certain movements. States he has been watching the incision sites and they look clean and are healing well but he covered them with another Band-Aid. Patient states that he has been passing bowel movements, has been trying to stay hydrated to ensure that they are soft. Tolerating regular diet slowly ramping up to normal. Endorses going for walks and tolerating this well. 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 and wants to make sure he has enough time to heal for returning to work [facility] Surgical History History of laparoscopic appendectomy (06/15/24) Social History Household Members: Family Housing: Apartment Do you presently have visiting nurse or other home services: No Patient Tobacco Use Status: Never used Tobacco Substance Use Type: Marijuana Review of Systems Const All systems reviewed & are unremarkable except as noted in HPI and below Physical Exam Vital Signs: Last Vital Signs BP 110/70 06/24/24 09:24 BMI result Body Mass Index 25.0 Const General: healthy appearing, comfortable and no acute distress Orientation/consciousness: patient oriented x3 Resp Effort & Inspection: normal respiratory effort and able to speak in complete sentences GI Other: Incision site bandages and Steri-Strips removed incisions are clean dry and intact no surrounding erythema or discharge noted Inspection: No distended Palpation (GI): Soft to palpation, not firm, Tenderness to palpation present (GI) (Mild incisional tenderness, primarily in the left lower quadrant port site), no guarding and not rigid Neuro General: patient oriented x3 Assessment & Plan Assessment & Plan (1) S/P laparoscopic appendectomy: Code(s): Z90.49 - Acquired absence of other specified parts of digestive tract Category: Surgical Plan 23-year-old transgender male presents to the office for routine follow-up s/p laparoscopic appendectomy on 06/15/2024. Surgical specimen pathology results are as follows: Acute suppurative appendicitis and periappendicitis with fibrinous adhesions. Patient is doing well, still experiencing some mild pain with ambulation. Abdominal exam benign aside from some incisional pain at the left lower quadrant port site. Incision sites look clean dry and intact no concern for infection at this time. He continues to tolerate full diet, endorses adequate bowel movements. Patient has no concerns at this time. We discussed returning to work, patient did not feel comfortable returning at the 2 week postop emanuel due to some pain with ambulation and the nature of work, being in a factory and moving heavy objects. Patient okay to return to work on 07/06 with no restrictions. We also discussed caring for the incision sites: Forward patient was instructed that he no longer needs to cover the incision sites at this point recommended cleaning with water and a gentle soap in the shower. No submerging in hot tubs, baths, pools. Patient no longer requiring follow-up at this time, we discussed that if he has any future concerns that he can always reach out to the office to be seen Coding Level of Care Code Global (24169) Diagnoses S/P laparoscopic appendectomy Z90.49
[2024-06-24 09:24] VITALS: BP 110/70; BMI 25.0
== END 2024-06-24 09:49 | disposition home or self-care (01) ==
LOC: HO.HGS 09:18
PROVIDERS: PCP Internal Medicine
DX: Z90.49 Acquired absence of other specified parts of digestive tract (principal)
CPT/HCPCS: 99024

== ENCOUNTER → 2024-06-24 09:17 | Outpatient (BNVA) | payer OTHER, SELFPAY | PROVIDERS: PCP Internal Medicine | DX: Z48.815 Encounter for surgical aftercare following surgery on the digestive system (principal); Z90.49 Acquired absence of other specified parts of digestive tract | CPT/HCPCS: 99212 ==